=== PATIENT | female | born 1980 | race American Indian/Alaskan Native ===

== ENCOUNTER 2016-10-10 10:24 | Emergency (ER) | payer MEDICAID ==
[2016-10-10 10:38] VITALS: BP 132/92
[2016-10-10] MEDS ORDERED: MOTRIN PO ONE (13:25)
[2016-10-10] MEDS ORDERED: FLEXERIL PO ONE (13:25)
--- NOTE | 2016-10-10 13:30 | Emergency Department Report ---
ED Lower Extremity HPI - General Chief Complaint: Fall Stated Complaint: FALL/STEPS Time Seen by Provider: 10/10/16 13:25 Source: patient Mode of arrival: Wheelchair Limitations: No Limitations - History of Present Illness Initial Comments: 35-year-old female was walking up stairs when she fell forward striking her knees and shins and wrists on the stairs. She was able to stand up quickly and ambulate on her abdomen. She is currently having pain in the knees and shins left mid back and left neck. No numbness tingling. MD Complaint: knee injury -: Sudden Type of Injury: other (fall) Place: work Severity: mild Improves With: nothing Worsens With: nothing Context: direct blow Associated Symptoms: other (able to bear weight). denies: snap/pop sensation, swelling, numbness - Related Data Previous Rx's Medication Instructions Recorded Last Taken Type Cyclobenzaprine [Flexeril 10 MG 10 mg PO Q12HR PRN #10 tablet 10/10/16 Unknown Rx TAB] Ibuprofen [Motrin 600 MG tab] 600 mg PO ONCE PRN #30 tablet 10/10/16 Unknown Rx Allergies Allergy/AdvReac Type Severity Reaction Status Date / Time No Known Allergies Allergy Unverified 10/10/16 10:38 ED Review of Systems ROS: Stated complaint: FALL/STEPS Other details as noted in HPI Constitutional: denies: chills, weakness Respiratory: denies: cough, orthopnea, shortness of breath Cardiovascular: denies: chest pain, palpitations Gastrointestinal: denies: abdominal pain, nausea Musculoskeletal: as per HPI Skin: denies: rash, lesions Neurological: denies: headache, weakness ED Past Medical Hx - Past Medical History Previous Medical History?: No - Surgical History Additional Surgical History: GASTRIC SLEEVE. X 2. RIGHT SHOULDER X 2. TUBAL LIGATION - Social History Smoking Status: Never Smoker Substance Use Type: None - Medications Home Medications: Home Medications Medication Instructions Recorded Confirmed Last Taken Type Cyclobenzaprine [Flexeril 10 MG 10 mg PO Q12HR PRN #10 tablet 10/10/16 Unknown Rx TAB] Ibuprofen [Motrin 600 MG tab] 600 mg PO ONCE PRN #30 tablet 10/10/16 Unknown Rx ED Physical Exam - General Limitations: No Limitations General appearance: alert, in no apparent distress - Eye Eye exam: Present: normal appearance. Absent: scleral icterus - ENT ENT exam: Present: normal exam, mucous membranes moist - Neck Neck exam: Present: normal inspection, full ROM, other (tenderness to the left lateral neck muscles, no midline tenderness). Absent: lymphadenopathy - Extremities Exam Extremities exam: Present: full ROM, tenderness ( bilateral tenderness to the shins. Full range of motion of the knees.), other (bilateral tenderness to the patellas,). Absent: normal capillary refill, joint swelling - Back Exam Back exam: Present: normal inspection, tenderness (mild tenderness to the left mid thoracic back paraspinal muscles). Absent: CVA tenderness (R), CVA tenderness (L) - Neurological Exam Neurological exam: Present: alert, oriented X3, other (normal strength in lower extremities) - Skin Skin exam: Present: warm, dry, intact ED Course Vital Signs 10/10/16 10:31 Temperature 98.3 F Pulse Rate 89 Respiratory 18 Rate Blood Pressure 132/92 O2 Sat by Pulse 99 Oximetry ED Lower Extremity MDM - Medical Decision Making Fall with mild trauma to the knee and shins. Patient able to ambulate without difficulty. Plan to treat with NSAIDs and muscle relaxants and discharge. Critical care attestation.: If time is entered above; I have spent that time in minutes in the direct care of this critically ill patient, excluding procedure time. ED Disposition Clinical Impression: Muscle spasm, Knee contusion, Contusion of leg Disposition: - TO HOME OR SELFCARE Is pt being admited?: No Condition: Stable Instructions: Knee Pain (ED), Fall Prevention (ED), Muscle Spasm (ED) Additional Instructions: Please use rest ice and ibuprofen for your knee injuries. Prescriptions: Cyclobenzaprine [Flexeril 10 MG TAB] 10 mg PO Q12HR PRN #10 tablet PRN Reason: Muscle Spasm Ibuprofen [Motrin 600 MG tab] 600 mg PO ONCE PRN #30 tablet PRN Reason: Pain Referrals: PRIMARY CARE,MD [Primary Care Provider] - 3-5 Days
== END 2016-10-10 14:01 | disposition home or self-care (01) ==
LOC: ED 10:24
DX: S80.02XA Contusion of left knee, initial encounter (principal); S80.01XA Contusion of right knee, initial encounter; M62.830 Muscle spasm of back; W10.2XXA Fall (on)(from) incline, initial encounter; Y93.89 Activity, other specified; Y99.8 Other external cause status; Y92.89 Other specified places as the place of occurrence of the external cause
CPT/HCPCS: 99283